=== PATIENT | female | born 1985 | race Caucasian/White ===

== ENCOUNTER 2017-07-31 11:24 | Inpatient (IN) | payer OTHER ==
[2017-07-31] MEDS ORDERED: ONDANSETRON HCL/PF 2 MG/ML VIAL IV PRN ×2 (11:29→13:05)
[2017-07-31] MEDS ORDERED: PROMETHAZINE HCL 12.5 MG in DEXTROSE 5 % IN WATER 50 ML IV PRN ×2 (11:29)
[2017-07-31] MEDS ORDERED: OXYTOCIN/DEXTROSE 5%-WATER 30 UNITS/500 ML BAG IV ONE ×2 (11:29→14:40)
[2017-07-31] MEDS ORDERED: RINGER'S SOLUTION,LACTATED 1,000 ML IV ONE (11:29)
[2017-07-31] MEDS ORDERED: BUTORPHANOL TARTRATE 2 MG/ML VIAL IV PRN (11:29)
[2017-07-31] MEDS ORDERED: LIDOCAINE HCL 50 ML VIAL PERI PRN (11:29)
--- NOTE | 2017-07-31 12:44 | PN ---
Progess Note - Interim Narrative: 07/31/17 12:43 SVE: 7/100/-1, arom-clear FHTs: 120's, mod daniel, no decels, + accels [place]: q2 min A/P: anticipate
[2017-07-31] MEDS ORDERED: NALOXONE HCL 1 MG/1 ML SYRG IV PRN (13:05)
[2017-07-31] MEDS ORDERED: fentaNYL CITRATE/PF 50 MCG/ML AMPUL IT SCH (13:15)
--- NOTE | 2017-07-31 13:31 | OR ---
Anesthesia Procedure Note - Anesthesia Procedure Note Date of Service: 07/31/17 Narrative: Vital Signs - Last Taken Temp 36.4 C L 07/31/17 13:07 Pulse 110 H 07/31/17 13:07 Resp 16 07/31/17 13:07 BP 133/71 07/31/17 13:07 Pulse Ox 100 07/31/17 13:07 07/31/17 13:29 ANESTHESIA PROCEDURE NOTE Date of Procedure: 07/31/2017. Time of procedure: 1310. Performed by: Romie Montalvo CRNA Pipelaying Fitter: None. Preprocedure diagnosis: Active labor. Post procedure diagnosis: Same. Procedure: Intrathecal injection of fentanyl. Indications: The patient is a 31 -year-old female in active labor requesting intrathecal injection for pain management. Findings: See below. Details of the procedure: The patient was placed in a sitting position. DuraPrep as well as Betadine swabs 3 was applied to the patient's back. Patient was then draped in a sterile fashion. Lidocaine 1% was infiltrated to the skin and subcutaneous tissues at the level of the L4-5 interspace. The subarachnoid space was identified using a 25-gauge Pencan needle. Free flow of CSF was noted. 20 g of fentanyl was injected. The spinal needle was removed intact. EBL: Minimal. Fluids: N/A. Specimen: N/A. Post procedure condition: The patient tolerated the procedure well. No complications were noted. Thank you for this consultation. Romie Montalvo CRNA
[2017-07-31] MEDS ORDERED: IBUPROFEN 800 MG TABLET PO PRN (14:40)
[2017-07-31] MEDS ORDERED: oxyCODONE HCL/ACETAMINOPHEN 1 TAB TABLET PO PRN ×2 (14:40)
[2017-07-31] MEDS ORDERED: SENNOSIDES 8.6 MG TABLET PO PRN (14:40)
[2017-07-31] MEDS ORDERED: BISACODYL 10 MG SUPP.RECT RC PRN (14:40)
[2017-07-31] MEDS ORDERED: BENZOCAINE/MENTHOL 81 SPRAY CAN TP PRN (14:40)
[2017-07-31] MEDS ORDERED: HYDROCORTISONE 30 APPL TUBE TP PRN (14:40)
[2017-07-31] MEDS ORDERED: GLYCERIN/WITCH HAZEL LEAF 40 APPL BOX TP PRN (14:40)
--- NOTE | 2017-07-31 14:46 | OR ---
Operative Report - Dictated Report Narrative: Spontaneous Vaginal Delivery Viable female with APGARS of 9 at 1 minute and 9 at 5 minutes. She delivered at 1414. Presentation was FLORENCIA. The right anterior shoulder delivered spontaneously followed by the posterior shoulder and the remainder of the baby. No nuchal cord was noted. The patient was placed on the maternal abdomen and a short cord was noted. The patient was dried and stimulated and the cord was clamped and cut after approximately 60 seconds. Weight: 7 lbs. 15 oz. or 3602 g Placenta was delivered spontaneously and intact. No lacerations were noted. Estimated blood loss: 100 ml Mother and baby tolerated delivery well. History for Definition: * The number of deliveries resulting in a live the patient experienced prior to current hospitalization * The previous delivery of live twins or any live multiple gestation is considered one live event. *If primagravida or nulliparous is documented select zero for the number of previous live births. Live Events: 1
[2017-07-31] MEDS: DOCUSATE SODIUM 100 MG CAPSULE PO SCH (23:10)
[2017-08-01 08:08] VITALS: BP 110/68
--- NOTE | 2017-08-01 09:50 | PN ---
Progess Note - Interim Narrative: 08/01/17 09:47 progress note Subjective: The patient is doing well. She is ambulating, voiding, tolerating by mouth. She has minimal pain and moderate lochia. Objective: General: No acute distress Abdomen: Soft, nontender, fundus is firm just below the umbilicus Extremities: minimal edema, nontender to palpation Assessment and plan: day 1 Feeding: Breast Pain: Controlled with by mouth medication Routine care. Patient requested: Today to go home 08/01/17 09:48
[2017-08-01] MEDS: DOCUSATE SODIUM 100 MG CAPSULE PO SCH (10:34)
== END 2017-08-01 18:51 | disposition home or self-care (01) | DRG 775 ==
LOC: OB 11:24
PROVIDERS: ADMIT Obstetrics & Gynecology Gynecologic Oncology; ATTEND Obstetrics & Gynecology Gynecologic Oncology
PROC: 10E0XZZ Delivery of Products of Conception, External Approach (ICD-10-PCS; principal; 2017-07-31)
PROC: 10907ZC Drainage of Amniotic Fluid, Therapeutic from Products of Conception, Via Natural or Artificial Opening (ICD-10-PCS; 2017-07-31)
PROC: 4A1HXCZ Monitoring of Products of Conception, Cardiac Rate, External Approach (ICD-10-PCS; 2017-07-31)
PROC: 00HU33Z Insertion of Infusion Device into Spinal Canal, Percutaneous Approach (ICD-10-PCS; 2017-07-31)
DX: O69.3XX0 Labor and delivery complicated by short cord, not applicable or unspecified (principal); Z3A.39 39 weeks gestation of pregnancy; Z37.0 Single live birth

== ENCOUNTER 2017-09-06 14:02 | Observation (INO) | payer OTHER ==
[2017-09-06 14:31] LABS: Urine Bilirubin Negative (NEGATIVE); Urine Blood 250 /ul (NEGATIVE); Urine Ketone 50 mg/dL (NEGATIVE); Urine Nitrite Negative (NEGATIVE); Urine Protein Negative (NEGATIVE); Urine Specific Gravity 1.025 SP.GR. (1.005-1.010); Urine Urobilinogen Normal (NORMAL); Urine pH 5.5 pH (5.0-7.0)
[2017-09-06 14:39] LABS: Hematocrit 42.6 % (37.0-47.0); Hemoglobin 14.5 gm/dL (12.5-16.0); Mean Cell Volume 83.9 fl (78-100); Mean Corpuscular Hemoglobin 28.5 pg (27-31); Mean Platelet Volume 9.7 fl (6.0-9.5); Neutrophil # 7.3 K/mm3 (1.3-6.0); Neutrophil % 74.6 % (42-75.0); Platelet Count 152 K/mm3 (150-450); Red Blood Count 5.08 M/mm3 (4.2-5.4); Red Cell Distribution Width 11.6 % (11.5-14.0); White Blood Count 9.7 K/mm3 (4.0-10.5)
[2017-09-06 14:48] LABS: Urine Color Yellow
[2017-09-06 14:49] LABS: Urine Appearance Cloudy; Urine Bacteria 3+; Urine RBC 0-5 /hpf (0-5); Urine Renal Epithelial Cell Few - 1+ /hpf; Urine Transitional Epi Cells Few - 1+ /hpf
[2017-09-06 15:00] LABS: Albumin * 3.7 gm/dl (3.4-5.0); Anion Gap 13.3 mmol/L (6.8-13.8); BUN/Creatinine Ratio 14.3 (9.0-21.6); Bilirubin, Total 0.7 mg/dL (0.0-1.1); Ca. Corrected For Albumin 8.6 mg/dL (8.4-10.2); Calcium * 8.7 mg/dL (7.9-10.9); Carbon Dioxide 25.6 mmol/L (24-32.6); Potassium 3.9 mmol/L (3.4-4.6); Total Protein 7.2 gm/dL (6.2-8.2)
[2017-09-06] MEDS ORDERED: DIATRIZOATE MEGLUMINE, SODIUM 30 ML BTL PO ONE (16:35)
[2017-09-06] MEDS ORDERED: DIATRIZOATE MEGLUMINE, SODIUM 30 ML BTL ONE (16:46)
--- NOTE | 2017-09-06 19:04 | ERNOTE ---
Abdominal HPI - Narrative Date of Service: 09/06/17 - General Chief Complaint: Abdominal Pain Time Seen by Provider: 09/06/17 15:24 Source: patient Exam Limitations: no limitations - Immun/Allergies/Home Medications Immunizatons: IMMUNIZATION HX History of Influenza Vaccine No Hx Pneumococcal Vaccination No Allergies/Adverse Reactions: Allergies No Known Allergies Allergy (Verified 09/06/17 14:10) Home Medications: HOME MEDICATIONS Docosahexanoic Acid [Dha] 200 mg PO DAILY 01/05/16 [Last Taken 01/05/16 07:00] Vits96/Iron Fum/Folic [ S] 1 tab PO TID 01/05/16 [Last Taken 12:00] Ibuprofen [Motrin] 800 mg PO Q6H PRN tablet 08/01/17 [Last Taken Unknown] - History of Present Illness Narrative: Patient presents with one day of RLQ pain. This began yesterday. She relates the pain has never gone away and has been gradually worsening. no fever. Does have decreased appetite. Has not moved in location. Localizes it to the RLQ. No fever. She has had chills. Denies prior problems like this. Pain moderate right now. She is one month post . No diarrhea. No dysuria. Has not seen anyone else for this. Worse with any palpation. Timing: constant, getting worse Quality: moderate Activities at Onset: none Modifying Factors - (Improves): Present: other - rest Modifying Factors - (Worsens): Absent: urinating Associated Symptoms: Present: loss of appetite. Absent: chest pain, vomiting, shortness of breath Prior Abdominal Problems: Present: none Prior Treatment: Absent: recently seen Review of Systems - Review of Systems Constitutional: Absent: fever Respiratory: Absent: shortness of breath Cardiology: Absent: chest pain Gastrointestinal/Abdominal: Present: See HPI Genitourinary: Absent: dysuria Musculoskeletal: Absent: back pain Neurological: Absent: weakness All Other Systems: All systems neg except as marked - Patient's Past Medical History Patient History - Medical: No pertinent hx Patient History - Cardiac/Respiratory: No pertinent hx Patient History - Cancer: No Hx of Cancer Patient History - Surgical Procedures: Other Patient History - Other: None - Social History Living Situations: home Psych History: No pertinent hx Alcohol Use: none Drug Use: none - Immunizations Hx Pneumococcal Vaccination: No History of Influenza Vaccine: No Physical Exam - Physical Exam General Appearance: Present: alert, no apparent distress Head Exam: Present: normal inspection, no evidence of injury Eye Exam: Normal inspection: bilateral, PERRL: bilateral Ears, Nose, Throat: Present: normal ENT inspection Neck: Present: normal inspection Respiratory: Present: no respiratory distress, normal breath sounds, lungs clear Cardiovascular/Chest: Present: regular rate, rhythm Gastrointestinal/Abdominal: Present: normal bowel sounds, nondistended, soft, tenderness, other - RLQ abdominal tenderness. Back Exam: Absent: CVA tenderness (R), CVA tenderness (L) Extremity Exam: Present: normal inspection Neurological Exam: Present: alert, normal mood/affect, no motor/sensory deficits Skin Exam: Present: normal color, warm/dry ED Progress - Results and Orders Patient's Lab Results:: I have reviewed the patient's lab results. - Vital Signs Patient's Vital Signs:: I have reviewed the patient's vital signs. Vital Signs: Vital Signs 09/06/17 09/06/17 14:04 16:22 Temperature 36.7 C 36.9 C Pulse Rate 89 88 Respiratory 12 18 Rate Blood Pressure 127/81 109/83 O2 Sat by Pulse 97 96 Oximetry - CT/Ultrasound CT/Ultrasound Narrative: I reviewed the official CT report per radiology. - Progress/Reassessment Chief Complaint: Abdominal Pain Progress Note-Subjective: 09/06/17 19:00 Dr Martinez called me with CT report of appendicitis. i immediately spoke with Dr Ozuna who will see the patient in the ED. D/W patient, she understands. Departure Clinical Impression: Acute appendicitis - Departure Disposition: [facility] Condition: Stable
--- NOTE | 2017-09-06 19:41 | HP ---
Chief Complaint - Chief Complaint Date of Service: 09/06/17 Time of Service: 19:33 Chief Complaint: acute appendicitis History of Present Illness: Started with abdominal pain yesterday afternoon. Moved to the right side and she was nauseated. Came to ER and was found to have RLQ tenderness. WBC normal however CT shows appendicitis - Patient's Past Medical History Patient History - Medical: No pertinent hx, Other - She and her both ate at a restaurant and had food poisoning earlier this week. She is one month ppost and is breast feeding Patient History - Cardiac/Respiratory: No pertinent hx Patient History - Cancer: No Hx of Cancer Patient History - Surgical Procedures: Other Patient History - Other: None - Family History Family History:: no untoward family reactions to anesthesia, no familial bleeding tendencies - Social History Living Situations: home Psych History: No pertinent hx Alcohol Use: none Drug Use: none - Immunizations Hx Pneumococcal Vaccination: No History of Influenza Vaccine: No Review Of Systems (GEN) - Review of Systems Generalized/Overall Review: Present: Malaise. Absent: Chills, Fever EENTM: Present: No Symptoms Reported Respiratory: Present: No Symptoms Reported Cardiac: Present: No Symptoms Reported Abdominal: Present: Other - RLQ pain, nausea, diarrhea from contrast Genitourinary: Present: No Symptoms Reported Musculoskeletal: Present: No Symptoms Reported Neurological: Present: No Symptoms Reported Skin: Present: No Symptoms Reported Endocrine: Present: Intolerance to Cold Immunizations: IMMUNIZATION HX History of Influenza Vaccine No Hx Pneumococcal Vaccination No Allergies/Adverse Reactions: Allergies Allergy/AdvReac Type Severity Reaction Status Date / Time No Known Allergies Allergy Verified 09/06/17 14:10 Home Medications: HOME MEDICATIONS Docosahexanoic Acid [Dha] 200 mg PO DAILY 01/05/16 [Last Taken 01/05/16 07:00] Vits96/Iron Fum/Folic [ S] 1 tab PO TID 01/05/16 [Last Taken 12:00] Ibuprofen [Motrin] 800 mg PO Q6H PRN tablet 08/01/17 [Last Taken Unknown] Exam - Exam Vital Signs: Vital Signs - Last Taken Temp 36.9 C 09/06/17 16:22 Pulse 88 09/06/17 16:22 Resp 18 09/06/17 16:22 BP 109/83 09/06/17 16:22 Pulse Ox 96 09/06/17 16:22 Constitutional: Present: Alert, Oriented x3, Cooperative, Well nourished, Mild distress ENT Exam: Present: other - Mallampati 3 airway, malar flushing and coated tongue Eye Exam: bilateral eye: normal inspection, other - brief cicades Neck: Present: full range of motion, normal inspection Back Exam: Present: normal inspection Respiratory: Present: lungs clear, normal breath sounds Cardiovascular/Chest: Present: normal peripheral pulses, regular rate, rhythm Peripheral Pulses: radial (R): 4+, radial (L): 4+ Abdomen: Present: other - tender RLQ rebound and + Rovsing /Rectal: Present: Exam deferred Extremity: Present: normal range of motion, normal inspection, no pedal edema, no calf tenderness Skin Exam: Present: warm/dry, other - moist palms, malar flushing Appearance: Present: appropriate appearance, appropriate insight, neat Eye contact: Present: cooperative, good eye contact, normal speech Thoughts: Present: normal thought pattern Diagnostic Studies: Abnormal Lab Results 09/06/17 09/06/17 Range/Units 14:11 14:35 MPV 9.7 H (6.0-9.5) fl Lymphocytes % 18.7 L (20-51) % Neutrophils # 7.3 H (1.3-6.0) K/mm3 Urine Blood 250 H (NEGATIVE) /ul Ur Leukocyte Esterase 75 H (NEGATIVE) /ul Urine WBC 5-10 H (0-5) /hpf Ur Epithelial Cells 10-25 H (0-5) /hpf Ur Transition Epith Cell Few - 1+ H (NONE) /hpf Ur Renal Epithelial Cell Few - 1+ H (NONE) /hpf Urine Bacteria 3+ H (NONE) Laboratory Results WBC 9.7 K/mm3 (4.0-10.5) 09/06/17 14:35 RBC 5.08 M/mm3 (4.2-5.4) 09/06/17 14:35 Hgb 14.5 gm/dL (12.5-16.0) 09/06/17 14:35 Hct 42.6 % (37.0-47.0) 09/06/17 14:35 MCV 83.9 fl (78-100) 09/06/17 14:35 MCH 28.5 pg (27-31) 09/06/17 14:35 MCHC 34.0 g/dl (32-36) 09/06/17 14:35 RDW 11.6 % (11.5-14.0) 09/06/17 14:35 Plt Count 152 K/mm3 (150-450) 09/06/17 14:35 MPV 9.7 fl (6.0-9.5) H 09/06/17 14:35 Immature Gran % (Auto) 0.30 % (0.001-0.429) 09/06/17 14:35 Immature Gran # (Auto) 0.03 K/mm3 (0.000-0.0310) 09/06/17 14:35 Neutrophils % 74.6 % (42-75.0) 09/06/17 14:35 Lymphocytes % 18.7 % (20-51) L 09/06/17 14:35 Monocytes % 5.7 % (0.0-9) 09/06/17 14:35 Eosinophils % 0.6 % (0.0-3.0) 09/06/17 14:35 Basophils % 0.1 % (0.0-1.0) 09/06/17 14:35 Nucleated RBC % 0.0 k/mm3 (0-1) 09/06/17 14:35 Neutrophils # 7.3 K/mm3 (1.3-6.0) H 09/06/17 14:35 Lymphocytes # 1.8 k/mm3 (1.5-3.5) 09/06/17 14:35 Monocytes # 0.6 k/mm3 (0.0-1.0) 09/06/17 14:35 Eosinophils # 0.1 k/mm3 (0.0-0.7) 09/06/17 14:35 Absolute Basophils 0.0 k/mm3 (0.0-0.1) 09/06/17 14:35 Sodium 138 mmol/L (132-142) 09/06/17 14:35 Plasma Sodium 138 mmol/L (130-142) 09/06/17 14:35 Potassium 3.9 mmol/L (3.4-4.6) 09/06/17 14:35 Chloride 103 mmol/L (97-106) 09/06/17 14:35 Carbon Dioxide 25.6 mmol/L (24-32.6) 09/06/17 14:35 Anion Gap 13.3 mmol/L (6.8-13.8) 09/06/17 14:35 BUN 11 mg/dL (3-23) 09/06/17 14:35 Creatinine 0.77 mg/dL (0.4-1.4) 09/06/17 14:35 Est GFR (Non-Af Amer) 92 mL/min (60-130) 09/06/17 14:35 BUN/Creatinine Ratio 14.3 (9.0-21.6) 09/06/17 14:35 Random Glucose 76 mg/dL (70-110) 09/06/17 14:35 Calcium 8.7 mg/dL (7.9-10.9) 09/06/17 14:35 Calcium Adj for Albumin 8.6 mg/dL (8.4-10.2) 09/06/17 14:35 Total Bilirubin 0.7 mg/dL (0.0-1.1) 09/06/17 14:35 AST 21 U/L (0-48) 09/06/17 14:35 ALT 29 U/L (19-67) 09/06/17 14:35 Alkaline Phosphatase 80 U/L (50-170) 09/06/17 14:35 Total Protein 7.2 gm/dL (6.2-8.2) 09/06/17 14:35 Albumin 3.7 gm/dl (3.4-5.0) 09/06/17 14:35 Amylase 50 U/L (25-115) 09/06/17 14:35 Lipase 87 U/L (73-393) 09/06/17 14:35 Urine Color Yellow 09/06/17 14:11 Urine Appearance Cloudy 09/06/17 14:11 Urine pH 5.5 pH (5.0-7.0) 09/06/17 14:11 Ur Specific [place] 1.025 SP.GR. (1.005-1.010) 09/06/17 14:11 Urine Protein Negative mg/dL (NEGATIVE) 09/06/17 14:11 Urine Glucose (UA) Negative mg/dL (NEGATIVE) 09/06/17 14:11 Urine Ketones 50 mg/dL (NEGATIVE) 09/06/17 14:11 Urine Blood 250 /ul (NEGATIVE) H 09/06/17 14:11 Urine Nitrate Negative (NEGATIVE) 09/06/17 14:11 Urine Bilirubin Negative mg/dl (NEGATIVE) 09/06/17 14:11 Urine Urobilinogen Normal EU/dl (NORMAL) 09/06/17 14:11 Ur Leukocyte Esterase 75 /ul (NEGATIVE) H 09/06/17 14:11 Urine RBC 0-5 /hpf (0-5) 09/06/17 14:11 Urine WBC 5-10 /hpf (0-5) H 09/06/17 14:11 Ur Epithelial Cells 10-25 /hpf (0-5) H 09/06/17 14:11 Ur Transition Epith Cell Few - 1+ /hpf (NONE) H 09/06/17 14:11 Ur Renal Epithelial Cell Few - 1+ /hpf (NONE) H 09/06/17 14:11 Urine Bacteria 3+ (NONE) H 09/06/17 14:11 Urine Culture Comments Culture to follow 09/06/17 14:11 Urine HCG, Qual Negative (NEGATIVE) 09/06/17 14:11 CT scan shows acute appendicitis, significant inflamation Assessment/Plan - Assessment/Plan (1) Acute appendicitis Assessment: Explained appendectomy (laparoscopic or opepn) risks and possible complications. Outlined expected course. Questions answered and informed consent obtained for appendectomy. Chlorhexidine wipes, IV mefoxin, SCD's Problem: Acute
[2017-09-06] MEDS ORDERED: RINGER'S SOLUTION,LACTATED 1,000 ML IV PRN (19:42)
[2017-09-06] MEDS ORDERED: CEFOXITIN SODIUM 2 GM in DEXTROSE 5 % IN WATER 100 ML IV ONE ×2 (19:43)
[2017-09-06] MEDS ORDERED: RINGER'S SOLUTION,LACTATED 1,000 ML IV ONE ×2 (20:05→22:25)
[2017-09-06] MEDS ORDERED: BUPIVACAINE HCL/EPINEPHRINE 50 ML VIAL IJ ONE (21:00)
[2017-09-06] MEDS ORDERED: PROMETHAZINE HCL 12.5 MG in DEXTROSE 5 % IN WATER 50 ML IV PRN ×2 (22:25)
[2017-09-06] MEDS ORDERED: diphenhydrAMINE HCL 50 MG/ML VIAL IV PRN (22:25)
[2017-09-06] MEDS ORDERED: MORPHINE SULFATE 4 MG/ML SYRG IV PRN ×2 (22:25→22:30)
[2017-09-06] MEDS ORDERED: NALOXONE HCL 0.4 MG/ML VIAL IV PRN (22:25)
[2017-09-06] MEDS ORDERED: ONDANSETRON HCL/PF 2 MG/ML VIAL IV PRN (22:30)
[2017-09-06] MEDS: RINGER'S SOLUTION,LACTATED 1,000 ML IV PRN (23:30)
[2017-09-07] MEDS: CEFOXITIN SODIUM 1 GM in DEXTROSE 5 % IN WATER 100 ML IV SCH ×6 (02:08→13:45)
[2017-09-07] MEDS ORDERED: MORPHINE SULFATE 2 MG/ML DISP.SYRIN IV PRN ×2 (06:30)
[2017-09-07] MEDS: RINGER'S SOLUTION,LACTATED 1,000 ML IV PRN (06:32)
[2017-09-07] MEDS: oxyCODONE HCL/ACETAMINOPHEN 1 TAB TABLET PO PRN ×2 (06:42→13:51)
--- NOTE | 2017-09-07 07:31 | OR ---
Operative Report - Dictated Report Narrative: Date of operation 09/06/2017 Preoperative diagnosis: Acute appendicitis Postoperative diagnosis: Acute appendicitis. DIFFICULT INTUBATION Operation: Laparoscopic appendectomy Surgeon: HALEIGH Ozuna MD Anesthesia: GenJacques Montalvo CRNA Indications for procedure: The patient presented to the emergency room with a 24-hour history of abdominal pain. She was found to have right lower quadrant tenderness and CT scan evidence of appendicitis. Findings: DIFFICULT INTUBATION (required fiberoptic assist--too anterior for Monroe scope) Acute appendicitis Narrative of procedure: [The patient was identified preoperatively, and prior to the administration of anesthetic a multidisciplinary timeout was observed. The patient was placed supine, SCDs were applied, and 2 g of intravenous Mefoxin administered. After induction, initial laryngoscopic attempt at intubation unsuccessful. SaO2 was maintained by bag mask ventilation. A glide scope was utilized, however the cords were too anterior. A flexible fiberoptic bronchoscope was threaded through the endotracheal tube and used to traverse the cords and pass the tube. General endotracheal anesthetic was administered. The patient's abdomen was prepped with Betadine solution, and a generous operating field outlined with 4 sterile towels. The remainder the patient was covered with a sterile disposable drape. A transverse infraumbilical skin incision was made, and dissection was carried along the umbilical stalk until the fascia of the linea alba was encountered. This was incised. The peritoneum was elevated and incised to allow entry into the abdomen under direct vision. A Hussan cannula was placed and the abdomen insufflated with CO2. The laparoscopic camera was introduced and the abdomen briefly explored. Those portions of the liver, stomach, gallbladder, colon, and small intestine visualized appeared normal. There was evidence of omentum over the inflamed appendix in the right lower quadrant. Next under direct vision, 2 additional working ports were inserted through separate skin incisions, one in the suprapubic midline and one in the left lower quadrant. The adherent omentum was swept off and enlarged, inflamed appendix. A window was created adjacent to the appendiceal base which was then crossclamped and divided with a LEIGHA stapling device. The stump of the appendix was seen to be hemostatic and gas and liquid tight. The mesoappendix was divided with applications of a LEIGHA laparoscopic stapling device. It was seen to be hemostatic. The appendix was placed in an Endobag and parked in the right lower quadrant. The right lower quadrant was suctioned clean. The small working ports were then withdrawn under direct vision to ensure entry site hemostasis. The appendix was removed in conjunction with the Hussan cannula. The pneumoperitoneum was allowed to escape, and after receiving a correct sponge needle and instrument count attention was turned to closing the abdomen. The fascia and peritoneum at the umbilicus were approximated with interrupted sutures of antibiotic containing #1 Vicryl. Subcutaneous tissue was irrigated with Betadine. Skin incisions were approximated with interrupted vertical mattress sutures of 4-0 nylon. The operative sites were washed and dried. Dressings of Bactroban ointment and large Band-Aids were applied to the small port sites. The umbilical incision was dressed with Bactroban ointment, 2 x 2, large Band-Aid, and Medipore tape. The operative procedure was terminated at this point. There was no measurable blood loss. 0.5% Marcaine with epinephrine was used for local anesthetic infiltration area the appendix was submitted to pathology. The patient tolerated the anesthetic and procedure well without complication and was transferred to the recovery room awake, extubated, and in stable condition. Reviewed and electronically signed
[2017-09-07 14:29] VITALS: BP 95/55
--- NOTE | 2017-09-07 16:21 | DS ---
(1) Acute appendicitis Problem: Acute Description of Stay: She had a laparoscopic appendectomy for uncomplicated acute appendicitis. REQUIRED FIBEROPTIC ASSISTED INTUBATION DUE TO ANTERIOR CORDS (TOO ANTERIOR FOR GLIDESCOPE) Chlorhexidine wipes, SCD's, and IV mefoxin (pre and post op) VS remained normal. Presenting pain resolved and incisional pain controlled with po Percocet. Tolerated advanced diet. OOB independently. Dressings remained dry. Home with instructions, Rx for Percocet, RTC 1 week Procedures Performed: see notes below - laparoscopic appendectomy DIFFICULT INTUBATION Discharge Disposition: Home self care Disposition: Home self-care Condition: Good Discharge Activity: Activity as tolerated, No Lifting Discharge Diet: General/regular food Referrals: Marco Antonio Ozuna MD [Staff Physician] - Problem Oriented Discharge Instructions to Patient/Family: Laparoscopic Appendectomy, Adult, Care After, [id number] Additional Patient Instructions (free text): follow up in office 7-10 days Complete Home Medications List: Complete Home Medication List: Docosahexanoic Acid [Dha] 200 mg PO DAILY 01/05/16 Vits96/Iron Fum/Folic [ S] 1 tab PO TID 01/05/16 Ibuprofen [Motrin] 800 mg PO Q6H PRN tablet 08/01/17 oxyCODONE HCL/ACETAMINOPHEN [Percocet 5 MG/325 MG] 1 tab PO Q4H PRN #20 tablet 09/07/17
== END 2017-09-07 17:00 | disposition home or self-care (01) ==
LOC: ER 14:02 → AMB 19:10 → MS 22:51
PROVIDERS: ADMIT Surgery; ATTEND Surgery
PROC: 0DTJ4ZZ Resection of Appendix, Percutaneous Endoscopic Approach (ICD-10-PCS; principal; 2017-09-06 19:37)
DX: O99.63 Diseases of the digestive system complicating the puerperium (principal); K35.3 Acute appendicitis with localized peritonitis; Z68.23 Body mass index [BMI] 23.0-23.9, adult
CPT/HCPCS: 36415; 44970; 74177; 80053; 81001; 82150; 83690; 84703; 85025; 87086; 88304; 96365; 96366; 96375; 99285; G0378; J2405